=== PATIENT | male | born 1995 | race Caucasian/White ===

== ENCOUNTER 2022-10-11 23:19 | Emergency (ER) | payer MEDICAID, OTHER ==
[~2022-10-11] VITALS: Ht 170.2 cm; Wt 88.6 kg
[2022-10-12] MEDS ORDERED: PERTUSS(ACELL),DIPH,TET VAC/PF 0.5 ML SYRINGE IM. ONE (00:15)
[2022-10-12] MEDS ORDERED: BACITRACIN 0.9 GM PACKET OINTMENT TP ONE (00:15)
[2022-10-12] MEDS ORDERED: LIDOCAINE 1% 10 ML VIAL SQ ONE (00:15)
[2022-10-12 04:01] LABS: BASOPHILS % (AUTO) 0.3 % (0.0-2.0); EOSINOPHILS % (AUTO) 1.8 % (1.0-6.0); HEMATOCRIT 41.3 % (41-53); LYMPHOCYTES # (AUTO) 3.6 K/uL (1.0-4.8); LYMPHOCYTES % (AUTO) 30.4 % (22.0-44.0); MEAN CORPUSCULAR HEMOGLOBIN 29.2 pg (26.0-34.0); MEAN CORPUSCULAR HGB CONC 33.9 G/dL (31.0-37.0); MEAN CORPUSCULAR VOLUME 86 fL (80-100); MONOCYTES # (AUTO) 0.8 K/uL (0.1-1.0); MONOCYTES % (AUTO) 7.2 % (2.0-9.0); NEUTROPHILS # (AUTO) 7.1 K/uL (1.8-7.7); NEUTROPHILS % (AUTO) 60.3 % (40.0-70.0); PLATELET COUNT (AUTO) 332 K/uL (150-450); RED BLOOD CELL COUNT(AUTO) 4.79 MIL/uL (4.50-5.90); RED CELL DISTRIBUTION WIDTH 13.9 % (11.5-14.5)
[2022-10-12 04:37] LABS: ANION GAP 11 mmol/L (8-16); CALCIUM, TOTAL 9.3 mg/dL (8.8-10.5); CARBON DIOXIDE 28 mmol/L (22-29); CHLORIDE 103 mmol/L (98-107); GLOMERULAR FILTR. RATE CALC > 60 mL/min (>60); GLUCOSE,RANDOM 200 mg/dL (70-110); POTASSIUM 4.5 mmol/L (3.5-5.1); SODIUM SERUM 142 mmol/L (136-145); UREA NITROGEN, BLOOD 7 mg/dL (7-18)
[2022-10-12 04:44] LABS: ALANINE AMINOTRANSFERASE 43 U/L (12-78); ALBUMIN 3.7 g/dL (3.4-5.0); ALKALINE PHOSPHATASE 127 U/L (46-116); ASPARTATE AMINOTRANSFERASE 19 U/L (15-37); BILIRUBIN,TOTAL 0.2 mg/dL (0.1-1.0)
[2022-10-12 05:29] LABS: AMPHET/METH SCREEN,URINE NEGATIVE (NEGATIVE); BARBITURATE SCREEN, URINE NEGATIVE (NEGATIVE); BENZODIAZEPINES SCREEN,URINE NEGATIVE (NEGATIVE); CANNABINOID SCREEN,URINE NEGATIVE (NEGATIVE); COCAINE SCREEN,URINE NEGATIVE (NEGATIVE); METHADONE SCREEN, URINE NEGATIVE (NEGATIVE); OPIATE SCREEN,URINE NEGATIVE (NEGATIVE); PHENCYCLIDINE SCREEN,URINE NEGATIVE (NEGATIVE)
[2022-10-12] MEDS ORDERED: MELA3TAB89 PO (08:52)
[2022-10-12 09:15] VITALS: BP 135/72
== END 2022-10-12 09:44 | disposition home or self-care (01) ==
LOC: EMS 23:21
DX: S05.11XA Contusion of eyeball and orbital tissues, right eye, initial encounter (principal); F20.9 Schizophrenia, unspecified; Y08.89XA Assault by other specified means, initial encounter; Y93.89 Activity, other specified; Y92.89 Other specified places as the place of occurrence of the external cause; Y99.8 Other external cause status
CPT/HCPCS: 99285; 80053; 85025; 36415; 12013; 70450; 70486; 72125; 90715; 90471; 80307 ×2; G0480; J3490

== ENCOUNTER 2023-01-14 18:30 | Emergency (ER) | payer MEDICAID ==
[~2023-01-14] VITALS: Ht 170.2 cm; Wt 95.5 kg
[~2023-01-14 18:30] MED LIST: MELA3TAB89 PO
[2023-01-14 19:27] VITALS: BP 133/80
== END 2023-01-14 19:52 | disposition home or self-care (01) ==
LOC: EMS 18:31
DX: T16.2XXA Foreign body in left ear, initial encounter (principal); W45.8XXA Other foreign body or object entering through skin, initial encounter; Y93.89 Activity, other specified; Y92.89 Other specified places as the place of occurrence of the external cause; Y99.8 Other external cause status
CPT/HCPCS: 99284; Z7502